=== PATIENT | male | born 1990 | race African-American/Black ===

== ENCOUNTER 2023-01-09 17:56 | Emergency (ER) | payer OTHER, SELFPAY ==
--- NOTE | ~2023-01-09 | XR_ITS ---
EXAM: XR wrist RT min 3V, XR hand RT min 3V DATE: 01/09/2023 19:41 (accession [id number]), 01/09/2023 19:42 (accession [id number]) HISTORY: wrist injury . COMPARISON: None available. FINDINGS: Normal mineralization. No fracture or dislocation. No lytic or blastic lesion. Joint space s are maintained. No erosion or periosteal change. Soft tissues within normal limits. IMPRESSION: No acute osseous finding in the right wrist or hand. Reviewed, dictated and finalized at location K. IMPRESSION: No acute osseous finding in the right wrist or hand.
[2023-01-09 19:25] VITALS: BP 115/67; PULSE 75; RESP 17; TEMP 36.5; O2SAT 100
--- NOTE | 2023-01-09 20:36 | ED.UPPEXIN ---
HPI - Extremity Injury (Upper) General Chief Complaint: Extremity Injury, Upper Stated Complaint: hand injury Time Seen by Provider: 01/09/23 20:33 Source: patient Mode of arrival: ambulatory Limitations: no limitations History of Present Illness HPI narrative: 32-year-old otherwise healthy here with the complaints of right wrist and hand pain. Patient states that he got injured while he was working. His hand got in between a pallet and a roller. Review of Systems Review of Systems: All systems reviewed & are unremarkable except as noted in HPI and below Constitutional: Constitutional: Reports no additional constitutional complaints Eyes: Eyes: Reports no additional eye complaints ENT: Reports system reviewed and no additional complaints, except as documented Cardiovascular: Cardiovascular: Reports no additional cardiovascular complaints Respiratory: Respiratory: Reports no additional respiratory complaints Gastrointestinal: Gastrointestinal: Reports no additional gastrointestinal complaints Musculoskeletal: Musculoskeletal: Reports as per HPI Exam Narrative: GENERAL: Well-appearing, well-nourished, and in no acute distress. HEAD: Normocephalic, atraumatic. EYES: PERRLA and EOMI NECK: Supple. CHEST: Clear to auscultation. No respiratory distress. HEART: Regular rate and rhythm. No murmur heard. Normal peripheral pulses.. EXTREMITIES: Normal range of motion. No edema. Examination of the right hand and wrist shows mild soft tissue swelling on the radial aspect. No deformity. Mild abrasions on the fingers. SKIN: Warm, dry, no rash. NEURO: No focal deficits. Alert and oriented x3. PSYCH: Normal mood and affect. Course Vital Signs Vital signs: Vital Signs Temperature 36.5 C 01/09/23 19:25 Pulse Rate 75 01/09/23 19:25 Respiratory Rate 17 01/09/23 19:25 Blood Pressure 115/67 01/09/23 19:25 Pulse Oximetry 100 01/09/23 19:25 Oxygen Delivery Room Air 01/09/23 19:25 Temperature 36.5 C 01/09/23 19:25 Pulse Rate 75 01/09/23 19:25 Respiratory Rate 17 01/09/23 19:25 Blood Pressure 115/67 01/09/23 19:25 Pulse Oximetry 100 01/09/23 19:25 Oxygen Delivery Room Air 01/09/23 19:25 MDM - Extremity Injury (Upper) Lab Data Labs: ITS Impressions Hand X-Ray 01/09/23 19:50 IMPRESSION: No acute osseous finding in the right wrist or hand. Wrist X-Ray 01/09/23 19:50 IMPRESSION: No acute osseous finding in the right wrist or hand. Discharge Plan Discharge Clinical Impression: Sprain and strain of wrist Patient Disposition: Home, Self-Care Condition: Stable Instructions: Wrist Sprain (ED) Additional Instructions: Take pain medication as prescribed. Prescriptions: New ibuprofen 600 mg tablet 600 mg PO Q6H PRN (Reason: pain) Qty: 20 0RF Follow-up/Referrals: PHYSICIAN NOT ON STAFF,NONSTAFF [Primary Care Provider] - Dustin Grove MD [Physician] - Time of Disposition: 20:41
== END 2023-01-09 21:00 | disposition home or self-care (01) ==
PROVIDERS: Emergency Provider Family Medicine
DX: S63.501A Unspecified sprain of right wrist, initial encounter (principal); S66.911A Strain of unspecified muscle, fascia and tendon at wrist and hand level, right hand, initial encounter; W23.2XXA Caught, crushed, jammed or pinched between a moving and stationary object, initial encounter
CPT/HCPCS: 73110; 73130; 99283

== ENCOUNTER 2023-03-10 03:20 | Emergency (ER) | payer OTHER, SELFPAY ==
[2023-03-10 03:18] VITALS: BP 124/72; PULSE 64; RESP 14; TEMP 36.3; O2SAT 100
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
[2023-03-10] MEDS: IBUPROFEN 400 MG TABLET 800 MG PO (03:53)
[2023-03-10] MEDS: hydrOXYzine HCL 25 MG TABLET 50 MG PO (03:53)
[2023-03-10 04:33] LABS: Basophils Absolute Auto 0.1 K/mm3 (0.0-0.1); Basophils Percent Auto 1.1 % (0.2-1.2); Eosinophils Absolute Auto 0.3 K/mm3 (0-0.3); Eosinophils Percent Auto 4.3 % (0-4.4); Hematocrit 35.9 % (42.0-52.0); Hemoglobin 12.1 g/dL (14.0-18.0); Immature Granulocyte Absolute 0.02 K/mm3 (0.00-0.031); Immature Granulocyte Percent A 0.3 % (0-0.5); Lymphocytes Absolute Auto 2.86 K/mm3 (0.9-3.2); Lymphocytes Percent Auto 45.2 % (18.3-44.2); Mean Corpuscular HGB Conc 33.7 g/dl (32-36); Mean Corpuscular Hemoglobin 31.8 pg (26-34); Mean Corpuscular Volume 94.5 fl (80-100); Mean Platelet Volume 9.3 fl (7.4-10.4); Monocytes Absolute Auto 0.7 K/mm3 (0.1-0.6); Monocytes Percent Auto 11.5 % (2.6-8.5); Neutrophils Absolute Auto 2.4 K/mm3 (1.3-6.7); Neutrophils Percent Auto 37.6 % (45.5-73.1); Platelet Count Result 227 k/mm3 (150-375); Red Cell Distribution Width 13.1 % (11.5-14.5); White Blood Count 6.3 K/mm3 (4.5-10.0)
[2023-03-10 04:44] LABS: Alanine Aminotransferase 51 U/L (6-50); Albumin Level 3.4 g/dL (3.5-5.1); Alkaline Phosphatase 71 U/L (38-126); Anion Gap 2 mmol/L (8-16); Aspartate Amino Transferase 59 U/L (17-59); Bilirubin,Total 0.3 mg/dL (0.2-1.3); Blood Urea Nitrogen 23 mg/dL (9-20); Calcium 8.2 mg/dL (8.4-10.2); Carbon Dioxide 27 mmol/L (22-30); Chloride 105 mmol/L (98-107); Estimated CRCL calculation 103 ml/min; Estimated Glomerular Filt Rate > 60; Glucose 104 mg/dL (65-110); Sodium 134 mmol/L (137-145)
[2023-03-10 04:45] LABS: Ethanol < 10 mg/dL (<10)
[2023-03-10 05:21] VITALS: BP 122/72; PULSE 80; RESP 14; O2SAT 100
[2023-03-10 05:29] LABS: Thyroid Stimulating Hormone Reflex 0.744 uIU/mL (0.465-4.68)
[2023-03-10 05:43] LABS: Appearance Urine Clear (Clear); Bacteria Urine None Seen /hpf; Bilirubin Urine Negative (Negative); Blood Urine Negative (Negative); Color Urine Yellow (Yellow); Glucose Urine UA Negative (Negative); Ketones Urine Negative (Negative); Leukocyte Esterase Ur 1+ LEU/UL (Negative); Nitrate Urine Negative (Negative); Non Pathogenic Casts 0-2; Protein Urine Negative (Negative); RBC Urine 0-2 /hpf (0-2); Specific Grav Ur 1.022 (1.001-1.035); Squamous Epithelial Cell Urine None seen /hpf (Few); WBC Urine 21-50 /hpf; pH Urine 7.5 (5.0-9.0)
[2023-03-10 05:49] LABS: Add Urine Microscopic? YES
[2023-03-10 06:25] LABS: Amphetamine Screen Urine Negative (Negative); Barbiturate Screen Urine Negative (Negative); Benzodiazepines Screen Urine Negative (Negative); Cannabinoid Screen Urine Positive (Negative); Cocaine Screen Urine Negative (Negative); Methadone Screen Urine Negative (Negative); Opiate Screen Urine Negative (Negative); Phencyclidine Screen Urine Negative (Negative)
--- NOTE | 2023-03-10 07:43 | PCCPR ---
Information for homeless shelters, housing assistance, food pantries, and other community resources given to pt.
[2023-03-10 08:33] VITALS: BP 130/80; PULSE 78; RESP 18; TEMP 36.8; O2SAT 99
== END 2023-03-10 08:39 | disposition home or self-care (01) ==
PROVIDERS: Emergency Provider Emergency Medicine
DX: F32.A Depression, unspecified (principal); Z59.819 Housing instability, housed unspecified
CPT/HCPCS: 36415; 80053; 80307; 81001; 84443; 85025; 87077; 87086; 87088; 87491; 87591; 99283; A9270